=== PATIENT | male | born 1945 | race Caucasian/White ===

== ENCOUNTER 2016-07-13 10:23 | Day surgery (SDC) | payer MEDICARE ==
--- NOTE | ~2016-07-13 | OP ---
Record Of Operation [facility] [address] [place]. [address] NAME: CLAUDE LE JR : 47 STATUS : [facility]#: [id number] AGE: 70 ADM/REG DATE : 07/13/16 MR#: [id number] REPORT SERV DATE: 07/13/16 DICTATED BY: BABAR CONNELL DATE: 07/13/16 REPORT STATUS : Draft TRANSCRIBED BY: MODL DATE: 07/13/16 DATE OF PROCEDURE: 07/13/2016 SURGEON: Babar Connell MD CARDIAC CATH LAB RADIOLOGY TECHNOLOGIST: None. PREPROCEDURE DIAGNOSES: 1. Peripheral arterial disease. 2. Left toe foot wounds. POSTPROCEDURE DIAGNOSIS: Left anterior tibial artery occlusion. ANESTHESIA: MAC and local. SPECIMENS: None. ESTIMATED BLOOD LOSS: Minimal. COMPLICATIONS: None. PROCEDURES: 1. Ultrasound access right common femoral artery. 2. Aortogram. 3. Left lower extremity arteriogram. 4. Selective catheterization of the anterior tibial artery. 5. Angioplasty of the anterior tibial artery using a 2.5 mm balloon. OPERATIVE COURSE: The patient was brought to the operating room and placed in a supine position on the operating room table. The patient had MAC anesthetic without complications. Bilateral groins were prepped and draped in sterile fashion. A time-out was performed. Identified the correct patient, procedure, and site. We began by using ultrasound to identify the right common femoral artery, was patent and free of significant disease. We anesthetized the skin and then accessed the artery under ultrasound guidance. A copy of this picture was placed on the chart for review. Once we had access, a wire was passed through the abdominal aorta. The needle was removed. We placed a 5-[place] sheath over the wire. We passed the UF catheter and placed it at the L1 vertebral level, performed aortography demonstrating patency of the aortoiliac segment without flow-limiting stenosis in the aorta, common, external, or internal iliac arteries. We then passed the wire and catheter down the contralateral common iliac artery to the external iliac level. We performed left lower extremity arteriogram demonstrating patency of the common femoral, profunda femoris, superficial femoral artery, popliteal artery, posterior tibial, and peroneal arteries. There was no flow-limiting stenosis in these vessels. The anterior tibial artery was occluded shortly after its takeoff. It reconstituted just above the ankle in a short wispy vessel. We gave IV heparin and allowed adequate time for circulation. We sized up to a longer 5-[place] sheath, which was brought up and over the bifurcation to the Record Of Operation [address] [place]. [address] NAME: CLAUDE LE JR : 47 STATUS : [facility]#: [id number] AGE: 70 ADM/REG DATE : 07/13/16 MR#: [id number] REPORT SERV DATE: 07/13/16 DICTATED BY: BABAR CONNELL DATE: 07/13/16 REPORT STATUS : Draft TRANSCRIBED BY: MODL DATE: 07/13/16 left superficial femoral artery. We passed a wire and catheter down to the level of the anterior tibial artery. We were able to cannulate it. We attempted several times to get access across the occluded anterior tibial artery. We did this with a combination of the V- 18 and 0.014 Spartacore wires as well as a series of different size TrailBlazer catheters. We never could make progress past the mid calf portion of the artery due to severe calcific occlusion. We tried to use a 2.5 mm balloon to dilate the arteries to see if we could create a new tract distally. This was ultimately unsuccessful. Wires and catheters were then removed. We wired out the sheath and brought it over the right side of the patient. Right common femoral arteriogram demonstrated good location of the sheath and good size of the artery. A StarClose device was placed with good hemostasis. No complications. The patient tolerated the procedure well. He was awakened and transferred to recovery in stable condition. POORNIMA/INDU Babar Connell MD / [id number] CC: MD Rigo Mcdonald M.D.
[~2016-07-13 10:23] MED LIST: APRES50 PO; ASAB PO; BESIVANCE0.6 % OPH; BETADINE TOP; C25 PO; C5 PO; CARDU4 PO; CARDURA8 MG PO; CLIN200 PO; COREG12 PO; COREG25 PO; COZ50 PO; COZAAR100 MG PO; D 5000 PO; EDARBI80 MG PO; FERROUS GLUC324 MG PO; FLONASE NAS; GLUCOV5 PO; GLUCPH PO; HALF81 PO; ILEVRO1.7 ML OPH; IODOSORB TOP; K-TABS10 MEQ PO; KDUR10 PO; L40 PO; LEVAQUIN750 MG PO; LEVOTHYROXIN25 MCG PO; LIPITOR20 PO; LIPITOR40 PO; LORTAB10 PO; LOTEMAX OPH SUSP5 ML OPH; MAX25 PO; NABUMETONE750 MG PO; NEUR300 PO; NEUR600 PO; NITROII30C TOP; NITROSTAT0.4 MG SL; NORCO1 TA2 PO; NORV10 PO; PRILOSEC40 MG PO; PRIN10 PO; PROSCAR5 PO; RANEXA1000 MG PO; SPIRO50 PO; SYN.025B PO; ULTRAM50 PO; VITC500 PO; XARELTO15 MG PO; XARELTO20 MG PO; Z300 PO; ZOL100 PO; ZYRTEC ALLGY10 MG PO; [UNRECOGNIZED DRUG - REMARK] TOP
[2016-07-13 11:02] LABS: HEMATOCRIT 29.2 % (40.0-51.0)
[2016-07-13 11:18] LABS: BUN (BLOOD UREA NITROGEN) 19 MG/DL (6-23); CALCIUM, SERUM 8.7 MG/DL (8.5-10.4); CHLORIDE, SERUM 104 MMOL/L (96-112); CO2 (CARBON DIOXIDE) 27 MMOL/L (24-34); CREATININE 0.83 MG/DL (0.70-1.30); GFR AFRICAN AMERICAN 104 ML/MIN (>=60); GFR NON AFRICAN AMERICAN 90 ML/MIN (>=60); GLUCOSE, SERUM 164 MG/DL (60-99); POTASSIUM, SERUM 4.7 MMOL/L (3.5-5.3); SODIUM, SERUM 138 MMOL/L (135-148)
== END 2016-07-13 18:06 | disposition home or self-care (01) ==
LOC: SDC 10:23 → SSU1 16:43
PROVIDERS: Student in an Organized Health Care Education/Training Program
PROC: 04L Lower Arteries, Occlusion (ICD-10-PCS; principal; 2016-07-13 12:45)
DX: I74.3 Embolism and thrombosis of arteries of the lower extremities (principal); E11.9 Type 2 diabetes mellitus without complications; I25.10 Atherosclerotic heart disease of native coronary artery without angina pectoris; Z95.1 Presence of aortocoronary bypass graft; I25.2 Old myocardial infarction; I50.9 Heart failure, unspecified; I11.0 Hypertensive heart disease with heart failure; J44.9 Chronic obstructive pulmonary disease, unspecified; E03.9 Hypothyroidism, unspecified; Z86.73 Personal history of transient ischemic attack (TIA), and cerebral infarction without residual deficits; I95.0 Idiopathic hypotension
CPT/HCPCS: 37228; 75625; 75710; 76937; 80048; 82962; 85014; 85018; 93005; A9270-GY; C1725; C1769; C1894; J0690; J2250; J2370; J2405; J3010; Q9966